=== PATIENT | male | born 1970 | race Caucasian/White ===

== ENCOUNTER 2024-02-24 20:14 | Emergency (ER) | payer SELFPAY ==
[2024-02-24 20:19] VITALS: BP 161/92; PULSE 75; RESP 20; TEMP 98.4; BMI 25.7
[2024-02-24 23:07] LABS: BASO % 0.5 % (0-2.0); EOS % 2.6 % (0-4.5); HEMATOCRIT 45.8 % (35.4-49); HEMOGLOBIN 15.3 GM/dL (11.7-16.9); LYMPH % 24.1 % (8-40); MCH 27.8 pg (25.7-33.7); MCHC 33.4 g/dl (32.0-35.9); MEAN CELL VOLUME 83.1 fl (80-96); MEAN PLT VOLUME 6.9 fl (7.5-11.1); MONO % 7.5 % (3.8-10.2); NEUT % 65.3 % (42.8-82.8); PLATELET COUNT 398 10^3/uL (134-434); RBC 5.51 M/mm3 (4.00-5.60); RDW 14.4 % (11.9-15.9); WHITE BLOOD COUNT 9.9 K/mm3 (4.0-10.0)
[2024-02-24 23:14] LABS: INR 1.03 (0.83-1.09); PROTHROMBIN TIME (PATIENT) 11.6 SEC (9.7-13.0)
[2024-02-24 23:17] LABS: ACTIVATED PTT 36.5 SECONDS (25.2-36.5)
[2024-02-24 23:33] LABS: POTASSIUM 3.9 mmol/L (3.5-5.1)
[2024-02-24 23:35] LABS: CALCIUM 9.5 mg/dL (8.5-10.1)
[2024-02-24 23:36] LABS: ALBUMIN 3.9 g/dl (3.4-5.0); BLOOD UREA NITROGEN 12.6 mg/dL (7-18)
[2024-02-24 23:39] LABS: CREATININE 1.1 mg/dL (0.55-1.3)
[2024-02-24 23:40] LABS: BILIRUBIN,TOTAL 0.5 mg/dL (0.2-1)
[2024-02-24 23:41] LABS: TOT PROT 7.5 g/dl (6.4-8.2)
== END 2024-02-25 00:07 | disposition home or self-care (01) ==
LOC: JER 20:14
DX: R42 Dizziness and giddiness (principal); R51.9 Headache, unspecified; Z20.822 Contact with and (suspected) exposure to COVID-19
CPT/HCPCS: 0241U-QW; 36415; 70450-TC; 71046-TC-FY; 80053; 84443; 84484; 85025; 85610; 85730; 86850; 86900; 86901; 93005; 93010; 99285-25